=== PATIENT | female | born 1970 | race Caucasian/White ===

== ENCOUNTER 2017-05-06 12:24 | Inpatient (IN) | payer OTHER ==
[~2017-05-06] VITALS: Ht 162.6 cm; Wt 54.9 kg
[~2017-05-06 12:24] MED LIST: DOLOGESIC CAPLE1 TAB PO; TUSICOF LIQUID120 ML PO
[2017-05-10] MEDS ORDERED: CIPRO500 MG PO (16:20)
== END 2017-05-10 18:40 | disposition home or self-care (01) | DRG 155 ==
LOC: ER 12:24 → MEDJ 21:37
PROC: 0HB3XZZ Excision of Left Ear Skin, External Approach (ICD-10-PCS; principal; 2017-05-08)
PROC: 0HB2XZZ Excision of Right Ear Skin, External Approach (ICD-10-PCS; 2017-05-08)
PROC: BW28ZZZ Computerized Tomography (CT Scan) of Head (ICD-10-PCS; 2017-05-08)
DX: H60.13 Cellulitis of external ear, bilateral (principal); B37.89 Other sites of candidiasis; H91.8X3 Other specified hearing loss, bilateral; H92.03 Otalgia, bilateral; B96.5 Pseudomonas (aeruginosa) (mallei) (pseudomallei) as the cause of diseases classified elsewhere

== ENCOUNTER → 2019-09-12 | Emergency (ER) | payer OTHER ==
[~2019-09-12] VITALS: Ht 162.6 cm; Wt 63.5 kg
[~2019-09-12] MED LIST changes: +CIPRO500 MG PO; +METFORMIN HCL500 M3 PO
== END | disposition left against medical advice (07) ==
LOC: ER 17:14
DX: Z53.20 Procedure and treatment not carried out because of patient's decision for unspecified reasons (principal)